=== PATIENT | male | born 1965 | race African-American/Black ===

== ENCOUNTER 2017-03-15 15:36 | Emergency (ER) | payer SELFPAY ==
[~2017-03-15] VITALS: Ht 177.8 cm; Wt 36.3 kg
[2017-03-15] MEDS ORDERED: ATIVAN (15:58)
[2017-03-15] MEDS ORDERED: KLONOPIN (15:58)
--- NOTE | 2017-03-15 15:59 | NUR ---
MED INFORMATION FROM PATIENT - CURRENTLY IN HIS INTOXICATED STATE.
[2017-03-15] MEDS ORDERED: IV NORMAL SALINE 1000 ML BAG IV ONE ×2 (16:00→18:00)
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
[2017-03-15 16:43] LABS: BASOPHILS # (AUTO) 0.1 K/uL (0.0-8.0); BASOPHILS % (AUTO) 1.1 % (0.0-2.0); EOSINOPHILS # (AUTO) 0.1 K/uL (0.0-0.7); HEMATOCRIT 38.6 % (40-50); HEMOGLOBIN 12.7 G/DL (14.0-18.0); LYMPHOCYTES # (AUTO) 1.1 K/UL (0.8-4.8); LYMPHOCYTES % (AUTO) 18.8 % (20.5-51.5); MEAN CORPUSCULAR HEMOGLOBIN 29.9 UUG (27.0-31.0); MEAN CORPUSCULAR HGB CONC 33 g/dL (32.0-37.0); MEAN CORPUSCULAR VOLUME 90.9 FL (82.0-92.0); MONOCYTES # (AUTO) 0.7 K/UL (0.1-1.30); MONOCYTES % (AUTO) 12.6 % (0.0-11.0); NEUTROPHILS # (AUTO) 3.7 K/UL (1.8-8.9); NEUTROPHILS % (AUTO) 66.5 % (38.5-71.5); PLATELET COUNT (AUTO) 222 K/UL (150-450); RED BLOOD CELL COUNT(AUTO) 4.25 MIL/UL (4.7-6.1); WHITE BLOOD COUNT (AUTO) 5.7 K/UL (4.0-11.2)
[2017-03-15 16:44] LABS: CARBON DIOXIDE 27 mmol/L (21-32); CHLORIDE 106 mmol/L (98-107); CREATININE 0.8 mg/dL (0.6-1.3); GLUCOSE 91 mg/dL (74-106); POTASSIUM 3.7 mmol/L (3.5-5.1); UREA NITROGEN, BLOOD 6 mg/dL (7-18)
[2017-03-15 16:48] LABS: ETHANOL 283 MG/DL (0-0)
[2017-03-15 16:50] LABS: ACETAMINOPHEN < 2.0 ug/mL (10-30); ALANINE AMINOTRANSFERASE 231 U/L (16-63); ALKALINE PHOSPHATASE 123 U/L (50-136); ASPARTATE AMINOTRANSFERASE 168 U/L (15-37); BILIRUBIN,DIRECT 0.2 mg/dL (0.0-0.2); BILIRUBIN,TOTAL 0.7 mg/dL (0.2-1.0); TOTAL PROTEIN, SERUM 6.8 g/dL (6.4-8.2)
[2017-03-15 17:12] LABS: THYROID STIMULATING HORMONE 1.489 mIU/mL (0.358-3.740)
[2017-03-15] MEDS ORDERED: MAGNESIUM SULFATE 2 GM in IV DEXTROSE 5% 100 ML IV ONE (18:00)
[2017-03-15] MEDS ORDERED: ALBUTEROL SULFATE 2.5 MG/3 ML NEBU NEB ONE (18:00)
[2017-03-15] MEDS ORDERED: IPRATROPIUM BROMIDE 0.5 MG/2.5 ML NEBU NEB ONE (18:00)
[2017-03-15] MEDS ORDERED: IPRATROPIUM BROMIDE 0.5 MG/2.5 ML NEBU ONE (18:19)
[2017-03-15] MEDS ORDERED: ALBUTEROL SULFATE 2.5 MG/3 ML NEBU ONE (18:19)
--- NOTE | 2017-03-15 19:23 | NUR ---
Assumed care of patient from Roly OCAMPO. Patient is asleep, no acute distress noted.
--- NOTE | 2017-03-15 21:49 | NUR ---
Patient in bed, no acute distress noted. Patient too intoxicated for dischrage. Will continue to monitor. Responsive to verbal and tactile stimuli.
--- NOTE | 2017-03-15 22:59 | NUR ---
Patient discharged to home in stable conditon. Written and verbal after care instructions given. Patient verbalizes understanding of instructions. Ambulated from ER with stable gait. All belongings with patient. Peripheral IV removed prior to discharge.
--- NOTE | 2017-03-15 22:59 | NUR ---
Patient is awake, alert, responsive to verbal and tactile stimuli. Alert and oriented x4. Able to ambulated with stable gait. Well tolerated.
--- NOTE | 2017-03-15 23:01 | NUR ---
Patient aware not to drive or operate heavy machinery due to recent alcohol intake. Patient state he does not own a vehicle and will be walking to his mothers house on [address].
[2017-03-15 23:03] VITALS: BP 127/68
== END 2017-03-15 23:04 | disposition home or self-care (01) ==
LOC: ER 15:41
DX: F10.129 Alcohol abuse with intoxication, unspecified (principal)
CPT/HCPCS: 36415; 71010; 83690; 84443; 85025; 85730; 93005; A4663; G0480; G0480-TC; J3590; J7030

== ENCOUNTER 2017-10-28 20:21 | Emergency (ER) | payer SELFPAY ==
[~2017-10-28] VITALS: Ht 172.7 cm; Wt 79.4 kg
[~2017-10-28 20:21] MED LIST: ATIVAN; KLONOPIN
--- NOTE | 2017-10-28 23:30 | NUR ---
DR ÁLVAREZ, KATIE MD AT BEDSIDE FOR MSE.
[2017-10-29 00:07] LABS: BASOPHILS % (AUTO) 0.6 % (0.0-2.0); EOSINOPHILS % (AUTO) 1.1 % (0.0-7.0); HEMOGLOBIN 13.3 g/dL (12.5-16.3); LYMPHOCYTES # (AUTO) 1.4 K/uL (20.0-40.0); LYMPHOCYTES % (AUTO) 48.5 % (20.5-51.5); MEAN CORPUSCULAR HEMOGLOBIN 28.6 uug (23.8-33.4); MEAN CORPUSCULAR HGB CONC 33 g/dL (32.5-36.3); MEAN CORPUSCULAR VOLUME 85.7 fL (73.0-96.2); MONOCYTES # (AUTO) 0.6 K/uL (2.0-10.0); MONOCYTES % (AUTO) 20.9 % (0.0-11.0); NEUTROPHILS # (AUTO) 0.8 K/uL (1.8-8.9); NEUTROPHILS % (AUTO) 28.9 % (38.5-71.5); PLATELET COUNT (AUTO) 140 K/uL (152-348); RED BLOOD CELL COUNT(AUTO) 4.67 MIL/uL (4.06-5.63); WHITE BLOOD COUNT (AUTO) 2.8 K/uL (3.6-10.2)
--- NOTE | 2017-10-29 00:11 | NUR ---
XRAY AT PT BEDSIDE.
--- NOTE | 2017-10-29 00:12 | NUR ---
PT TAKEN DOWN TO RADIOLOGY FOR XRAY/CT
[2017-10-29 00:21] LABS: BILIRUBIN,DIRECT 0.1 mg/dL (0.0-0.2); BILIRUBIN,TOTAL 0.4 mg/dL (0.2-1.0); CREATININE 0.9 mg/dL (0.6-1.3); POTASSIUM 3.8 mmol/L (3.5-5.1); TOTAL PROTEIN, SERUM 7.1 g/dL (6.4-8.2)
--- NOTE | 2017-10-29 02:07 | NUR ---
PT SLEEPING W/ EYES CLOSED. NO SIGNS OF DISTRESS NOTED
[2017-10-29 03:47] LABS: BAND % (MANUAL) 2 % (0-10); EOSINOPHILS % (MANUAL) 1 % (0-8); LYMPHOCYTES % (MANUAL) 51 % (20-40); MONOCYTES % (MANUAL) 10 % (2-10); NEUTROPHILS % (MANUAL) 36 % (42-75)
--- NOTE | 2017-10-29 05:26 | NUR ---
PT REPOSITIONED FOR COMFORT. NO DISTRESS NOTED.
--- NOTE | 2017-10-29 07:13 | NUR ---
REPORT GIVEN TO DAY SHIFT RN.
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
[2017-10-29 07:41] VITALS: BP 139/88
== END 2017-10-29 07:42 | disposition home or self-care (01) ==
LOC: ER 20:23
DX: F10.129 Alcohol abuse with intoxication, unspecified (principal); F17.210 Nicotine dependence, cigarettes, uncomplicated; F12.10 Cannabis abuse, uncomplicated; Z79.899 Other long term (current) drug therapy
CPT/HCPCS: 36415; 70030-TC; 71045; 83690; 85025; 85730; A4663; G0480

== ENCOUNTER 2017-12-16 15:30 | Emergency (ER) | payer SELFPAY ==
--- NOTE | 2017-12-16 15:36 | NUR ---
Patient left without being triaged.
== END 2017-12-16 15:37 | disposition left against medical advice (07) ==
LOC: ER 15:32
DX: Z53.21 Procedure and treatment not carried out due to patient leaving prior to being seen by health care provider (principal)

== ENCOUNTER 2017-12-16 16:18 | Emergency (ER) | payer MEDICAID ==
[~2017-12-16] VITALS: Ht 170.2 cm; Wt 90.7 kg
--- NOTE | 2017-12-16 17:23 | NUR ---
Patient removed all the monitoring cables and talking loudly to everyone, intermittently cooperative & belligerent at this time.
--- NOTE | 2017-12-16 17:24 | NUR ---
Patient is seen voiding on the trash can after instructing and giving him urinal, notified.
--- NOTE | 2017-12-16 17:26 | NUR ---
Patient was seen walking with slow steady gait, cursing & yelling "fuck you" repeatedly. Security staff was called.
--- NOTE | 2017-12-16 17:30 | NUR ---
With 2 security officers, myself & the ER doctor, pt was assisted back to his gurney.
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
--- NOTE | 2017-12-16 18:11 | NUR ---
Lucie kowalski was called 2x earlier for security assistance. Patient is AOX3, cursing and yelling "Nigger bitch." Patient came back to ER with the compounding and finishing supervisor Alexis and security staff. Patient is still for discharge per Dr Calderon.
--- NOTE | 2017-12-16 18:44 | NUR ---
PATIENT WAS ON THE PHONE WITH HIS MOTHER. HE TOLD THE PRIVATE WEALTH ADVISOR HE WANTS TO LEAVE. WE ENCOURAGED HIM TO STAY IN ER SEVERAL TIMES DURING HIS ER VISIT TODAY.
--- NOTE | 2017-12-16 18:53 | NUR ---
Patient left ER with steady gait after using the wall-mounted hospital telephone and was assisted by our security guard supervisor to the exit door.
== END 2017-12-16 18:59 | disposition home or self-care (01) ==
LOC: ER 16:19
DX: F10.129 Alcohol abuse with intoxication, unspecified (principal); R94.31 Abnormal electrocardiogram [ECG] [EKG]; F32.9 Major depressive disorder, single episode, unspecified; F41.9 Anxiety disorder, unspecified; F17.200 Nicotine dependence, unspecified, uncomplicated; Z85.07 Personal history of malignant neoplasm of pancreas
CPT/HCPCS: 93005; A4663